=== PATIENT | female | born 1960 ===

== ENCOUNTER 2023-01-13 14:54 | Outpatient (OUT) | payer OTHER, SELFPAY ==
--- NOTE | 2022-12-18 10:51 | XR_ITS ---
The [address] [address] Patient Name: EDGARD PIERRE MRN: [id number] date: 1960 Sex: F Assigned Patient Location: RAD Current Patient Location: [facility] Accession/Order Number: [id number] Exam Date: 12/18/2022 10:51 Report Date: 12/18/2022 15:25 At the request of: TYRESE NGUYEN Procedure: XR foot RT min 3V PROCEDURE: XR foot RT min 3V HISTORY: RIGHT FOOT PAIN ; acute first toe pain after falling COMPARISON: XR foot bilateral 12/10/2022 FINDINGS: BONES:Minimally displaced proximal lateral corner fracture of the first toe distal phalanx resulting in slight cortical step-off. Small piece of avulsed cortex from proximal dorsal margin of the first distal phalanx with 2 mm retraction. SOFT TISSUES:Mild soft tissue swelling of the first toe. EFFUSION:None visible. OTHER: Negative. IMPRESSION: 1. Small lateral corner fracture of the first toe distal phalanx and small cortical avulsion fragment from dorsal margin of the first distal phalanx which are now visible on today's study. Electronically authenticated by: JHOAN BOWIE Date: 12/18/2022 15:25
== END 2023-01-13 14:55 | disposition home or self-care (01) ==
LOC: RAD 14:55
PROVIDERS: Visit Provider Student in an Organized Health Care Education/Training Program
DX: M79.671 Pain in right foot (principal); S92.421A Displaced fracture of distal phalanx of right great toe, initial encounter for closed fracture
CPT/HCPCS: 73630

== ENCOUNTER 2023-01-15 11:11 | Outpatient (OUT) | payer OTHER, SELFPAY ==
--- NOTE | 2023-01-15 11:30 | XR_ITS ---
The [place] [id number] Patient Name: EDGARD PIERRE MRN: [id number] date: 1960 Sex: F Assigned Patient Location: [facility] Current Patient Location: [facility] Accession/Order Number: [id number] Exam Date: 01/15/2023 11:30 Report Date: 01/16/2023 07:37 At the request of: ALEE PIEDRA Procedure: XR foot RT min 3V PROCEDURE: XR foot RT min 3V COMPARISON: 12/18/2022 HISTORY: RIGHT FOOT PAIN FINDINGS: BONES:Stable intra-articular fracture lateral base of the first distal phalanx with interval increase in sclerosis and bony bridging. No new fracture or dislocation. Mild degenerative changes with marginal osteophyte formation. Enthesopathic spurring of the calcaneus SOFT TISSUES:Negative. No visible soft tissue swelling. EFFUSION:None visible. OTHER: Negative. XR/XR foot RT min 3V IMPRESSION: Stable healing intra-articular fracture lateral base first metatarsal Electronically authenticated by: SARIKA HUYNH Date: 01/16/2023 07:37
== END 2023-01-15 11:12 | disposition home or self-care (01) ==
LOC: RAD 11:12
PROVIDERS: Visit Provider Physician Assistant
DX: S92.421A Displaced fracture of distal phalanx of right great toe, initial encounter for closed fracture (principal)
CPT/HCPCS: 73630